=== PATIENT | male | born 1975 | race Caucasian/White ===

== ENCOUNTER 2016-05-04 04:59 | Day surgery (SDC) | payer OTHER ==
[~2016-05-04 04:59] MED LIST: ASAB PO; ATEN50 PO; BRIMONIDINE0.2 % OPH; CO Q-10100 MG PO; CRESTOR10 PO; DIL2TAB PO; EYE DROP2; EYE DROPS; FAMOTIDINE PO; FISH-EPA1000 MG PO; GLUCOPHAGE1000 MG PO; GLUCPH PO; IBU-200200 MG PO; LIPITOR10 PO; LORTAB 5 PO; METHOC750B PO; MOBIC15 MG PO; MSCONTIN PO; NEUR300 PO; NEUR600 PO; NIACIN 500 PO; NORCO1 TA1 PO; PRIN5 PO; TRADJENTA5 MG PO; ULTRAM50 PO; V2 PO; VIT B 100 PO; VITAMIN B PO; VOLTXR100 PO; ZANAFLEX 4 MG TA4 MG PO
== END 2016-05-04 23:59 | disposition home or self-care (01) ==
LOC: SDC 04:59
PROVIDERS: Orthopaedic Surgery
PROC: 3E0S3BZ Introduction of Anesthetic Agent into Epidural Space, Percutaneous Approach (ICD-10-PCS; 2016-05-04)
PROC: 3E0S33Z Introduction of Anti-inflammatory into Epidural Space, Percutaneous Approach (ICD-10-PCS; principal; 2016-05-04 07:15)
DX: M54.16 Radiculopathy, lumbar region (principal); E78.00 Pure hypercholesterolemia, unspecified; K44.9 Diaphragmatic hernia without obstruction or gangrene; K21.9 Gastro-esophageal reflux disease without esophagitis; E11.9 Type 2 diabetes mellitus without complications; I10 Essential (primary) hypertension; Z79.82 Long term (current) use of aspirin; Z79.891 Long term (current) use of opiate analgesic; Z79.899 Other long term (current) drug therapy; Z90.89 Acquired absence of other organs; Z98.1 Arthrodesis status; Z90.49 Acquired absence of other specified parts of digestive tract; Z98.890 Other specified postprocedural states
CPT/HCPCS: 82962; J1040; J2250; J3010; Q9967